=== PATIENT | female | born 1995 | race Caucasian/White ===

== ENCOUNTER 2017-10-07 15:17 | Emergency (ER) | payer SELFPAY ==
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
[2017-10-07 16:10] VITALS: BP 125/81
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
[2017-10-08 06:06] LABS: APPEARANCE,URINE CLEAR (CLEAR); COLOR,URINE YELLOW (YELLOW); OCCULT BLOOD,URINE NEGATIVE (NEGATIVE); UROBILINOGEN URINE 0.2 Eu (0.2-1.0)
== END 2017-10-07 16:51 | disposition home or self-care (01) ==
LOC: ED 15:17
DX: S40.011A Contusion of right shoulder, initial encounter (principal); V89.2XXA Person injured in unspecified motor-vehicle accident, traffic, initial encounter; Y92.9 Unspecified place or not applicable; Y93.9 Activity, unspecified; Y99.9 Unspecified external cause status
CPT/HCPCS: 73030; 81002; 81025; 99284

== ENCOUNTER 2017-11-17 17:50 | Emergency (ER) | payer SELFPAY ==
[2017-11-17 18:20] VITALS: BP 138/78
--- NOTE | 2017-11-17 18:58 | Diagnostic Imaging Report ---
FRANCESCA CHU (HAND SCRAPER) - ER [facility] [address] [facility] [address] [address] Report Submission Date: Nov 17, 2017 6:51:40 PM CDT Patient Study Name: ADOLFO ANDERSON Date: Nov 17, 2017 6:30:30 PM CDT Modality Type: DX Gender: F Description: SHOULDER : 89 Institution: [facility] Physician: FRANCESCA CHU (HAND SCRAPER) - ER Right shoulder, 3 views HISTORY Injury, pain. FINDINGS The osseous, joint and soft tissue structures are normal. Since October 07, 2017, no change has occurred. IMPRESSION Normal. Electronically signed on Nov 17, 2017 6:51:40 PM CDT by: Ilir MONTGOMERY
[2017-11-17] MEDS ORDERED: KETOROLAC TROMETHAMINE 60 MG/2 ML VIAL IM ONE (19:00)
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
== END 2017-11-17 19:26 | disposition home or self-care (01) ==
LOC: ED 17:50
DX: S40.011A Contusion of right shoulder, initial encounter (principal); X50.0XXA Overexertion from strenuous movement or load, initial encounter; Y92.9 Unspecified place or not applicable; Y93.9 Activity, unspecified; Y99.9 Unspecified external cause status
CPT/HCPCS: 73030; J1885; 96372; 99283